=== PATIENT | male | born 1965 | race Caucasian/White ===

== ENCOUNTER 2018-06-23 14:41 | Outpatient (CLI) | payer BC ==
[2018-06-23 17:57] LABS: BASOPHILS % (AUTO) 0.7 %; EOSINOPHILS # (AUTO) 0.2 10^3/uL (0.0-0.7); EOSINOPHILS % (AUTO) 3.1 %; HGB - HEMOGLOBIN 14.2 g/dL (14.0-18.0); LYMPHOCYTES # (AUTO) 1.2 10^3/uL (1.5-3.5); LYMPHOCYTES % (AUTO) 22.5 %; MEAN CORPUSCULAR HGB CONC 33.2 g/dL (32.0-36.0); MEAN CORPUSCULAR VOLUME 90.5 fL (80.0-94.0); MONOCYTES # (AUTO) 0.4 10^3/uL (0.0-1.0); MONOCYTES % (AUTO) 7.4 %; NEUTROPHILS # (AUTO) 3.7 10^3/uL (1.5-6.6); NEUTROPHILS % (AUTO) 66.3 %; PLT - PLATELET COUNT 161 10^3/uL (130-450); RED BLOOD COUNT 4.74 10^6/uL (4.70-6.10); RED CELL DISTRIBUTION WIDTH 13.4 % (12.0-15.0); WHITE BLOOD COUNT 5.5 x10^3/uL (4.8-10.8)
[2018-06-23 18:10] LABS: ALBUMIN 4.2 g/dL (3.2-5.5); ALBUMIN/GLOBULIN RATIO 1.9 (1.0-2.2); ALKALINE PHOSPHATASE 54 IU/L (42-121); ALT ALANINE AMINOTRANSFERASE 17 IU/L (10-60); AST ASPARTATE AMINOTRANSFERASE 18 IU/L (10-42); BILIRUBIN,TOTAL 0.8 mg/dL (0.2-1.0); BUN - BLOOD UREA NITROGEN 24 mg/dL (6-20); CALCIUM 8.9 mg/dL (8.5-10.3); CARBON DIOXIDE - CO2 30 mmol/L (21-32); CHLORIDE 102 mmol/L (101-111); CHOL/HDL RATIO 2.5 (<5.0); CHOLESTEROL 147 mg/dL; CREATININE 0.9 mg/dL (0.6-1.2); GFR - MDRD 88 (>89); GLUCOSE 83 mg/dL (70-100); HDL CHOLESTEROL 59 mg/dL; SODIUM 140 mmol/L (135-145); TOTAL PROTEIN 6.4 g/dL (6.7-8.2)
[2018-06-23 18:11] LABS: HB2 TOTAL 15.5 g/dL; HEMOGLOBIN A1C 0.52 g/dL; HEMOGLOBIN A1C % 5.2 % (4.6-6.2)
[2018-06-23 18:58] LABS: LDL CHOLESTEROL,DIRECT 71 mg/dL; LDLD/HDL RATIO 1.2 (<3.6)
== END 2018-06-23 14:42 | disposition home or self-care (01) ==
LOC: LAB.F 14:41
PROVIDERS: ATTEND Internal Medicine
DX: Z00.00 Encounter for general adult medical examination without abnormal findings (principal)
CPT/HCPCS: 36415; 80053; 80061; 83036; 83721; 85025

== ENCOUNTER 2019-01-05 17:23 | Emergency (ER) | payer BC ==
[2019-01-05 17:38] VITALS: BP 142/82
[2019-01-05] MEDS ORDERED: TETANUS/DIPHTHERIA/PERTUSSIS 0.5 ML SYRINGE IM ONE (18:07)
[2019-01-05] MEDS ORDERED: BUFFERED LIDOCAINE 10 ML SYRINGE SUBQ STA (18:07)
--- NOTE | 2019-01-05 18:27 | ED Physician Documentation ---
PD HPI LOWER EXT INJURY - Stated complaint Stated Complaint: LFT LEG LAC - Chief complaint Chief Complaint: Laceration - History obtained from History obtained from: Patient - History of Present Illness PD HPI LOW EXT INJURY LOCATION: Left, Lower leg Type of injury: Laceration (skil saw) Where injury occurred: Work Timing - onset: Today (1629) Timing - details: Abrupt onset - Additional information Additional information: tetanus unknown Review of Systems Constitutional: reports: Reviewed and negative Throat: reports: Reviewed and negative Cardiac: reports: Reviewed and negative Respiratory: reports: Reviewed and negative PD PAST MEDICAL HISTORY - Past Medical History Cardiovascular: None, Arrhythmia Respiratory: None Endocrine/Autoimmune: None GI: None : None HEENT: Dental implants Psych: None Musculoskeletal: None Derm: None - Past Surgical History Ortho: Other Derm: Skin cancer surgery - Present Medications Home Medications: Ambulatory Orders Medication Instructions Recorded Confirmed Trabectedin [Yondelis] 1 mg IV 12/25/15 - Allergies Allergies/Adverse Reactions: Allergies Allergy/AdvReac Type Severity Reaction Status Date / Time No Known Drug Allergies Allergy Verified 12/25/15 08:45 PD ED PE NORMAL - Vitals Vital signs reviewed: Yes - General General: Alert and oriented X 3, No acute distress - Extremities Extremities: Other (6cm lac medial left thigh just into subq) - Neuro Neuro: Alert and oriented X 3, Normal speech Results - Vitals Vitals: Vital Signs - 24 hr 01/05/19 17:35 Temperature 36.4 C L Heart Rate 66 Respiratory 14 Rate Blood Pressure 142/82 H O2 Saturation 98 Oxygen O2 Source Room air Procedures - Laceration (location) LLE Length in cm: 6 Wound type: Linear, Into subcut fat Neurovascular status: Sensory intact, Motor intact, Vascular intact Anesthesia: Lidocaine 1%, With bicarb Wound Preparation: Irrigated copiously NS Skin layer closure: Ghanshyam Other: Tetanus booster given Complexity: Simple Departure - Departure Disposition: 01 Home, Self Care Clinical Impression: Laceration Condition: Good Record reviewed to determine appropriate education?: Yes Instructions: ED Laceration Ext Sutr Stap Tape Comments: Come back for any signs of infection which would include: Redness, swelling, drainage, increased pain, or fevers. Follow-up with your physician in 14 days for staple removal. Your blood pressure was elevated today on check into the emergency department. This does not mean that you have hypertension, it is a common phenomenon to come to the emergency department and have elevated blood pressure. I recommend that you see your primary care physician within the week to have it rechecked when y ou are feeling better.
== END 2019-01-05 18:30 | disposition home or self-care (01) ==
LOC: ED 17:23
DX: S81.812A Laceration without foreign body, left lower leg, initial encounter (principal); W29.8XXA Contact with other powered hand tools and household machinery, initial encounter; R03.0 Elevated blood-pressure reading, without diagnosis of hypertension
CPT/HCPCS: 12002; 90471

== ENCOUNTER 2021-10-02 14:45 | Outpatient (CLI) | payer BC, OTHER ==
--- NOTE | 2021-10-02 16:43 | XRAY Report ---
PROCEDURE: Knee 4 View LT INDICATIONS: LEFT KNEE PAIN TECHNIQUE: 4 views of the left knee(s) were acquired. COMPARISON: None. FINDINGS: Bones: No fractures or dislocations. No suspicious bony lesions. Severe left knee medial compartmen t osteoarthritis. Moderate left knee lateral and medial compartment osteoarthritis. Soft tissues: No joint effusion. No suspicious soft tissue calcifications. IMPRESSION: Left knee tricompartmental osteoarthritis as described above. Reviewed by: Theresa Wright MD, PhD on 10/02/2021 4:41 PM PDT Approved by: Theresa Wright MD, PhD on 10/02/2021 4:41 PM PDT Station ID: [id number]
== END 2021-10-02 18:00 | disposition home or self-care (01) ==
LOC: DI.WOS 14:45
PROVIDERS: ATTEND Physician Assistant
DX: M17.12 Unilateral primary osteoarthritis, left knee (principal)

== ENCOUNTER 2021-12-04 08:51 | Outpatient (CLI) | payer OTHER, BC ==
--- NOTE | 2021-12-04 17:45 | MRI Report ---
PROCEDURE: Femur/Thigh LT W/O INDICATIONS: INJURY OF LEFT QUADRICEPS TECHNIQUE: Noncontrast coronal and sagittal T1 spin echo and STIR; axial T1 spin echo and T2 fast spin echo with fat saturation through the left thigh. COMPARISON: None. FINDINGS: Image quality: Excellent. Bones: The visualized bone marrow demonstrates normal signal on all sequences. The overlying cortex appears intact. No fractures lines or intra-osseous lesions. Soft tissues: There is rupture of the distal rectus femoris tendon approximately 10 cm from its inse rtion on superior patella with up to 7.3 cm proximal retraction of torn tendon fibers to the level of mid femoral shaft and moderate to large amount of surrounding fluid. Rest of the quadriceps muscles and tendons are intact. The scanned muscles demonstrate normal overall bulk and internal signal. Sub cutaneous tissues appear normal as well. No soft tissue masses are present. IMPRESSION: 1. Full-thickness rupture involving distal rectus femoris tendon with proximal retraction of torn ten don fibers and moderate amount of surrounding fluid as described above. 2. No other muscle or tendon signal abnormality. 3. No marrow edema. No fracture or dislocation. No suspicious intraosseous lesion. Reviewed by: Bill Gibson MD on 12/04/2021 5:44 PM PDT Approved by: Bill Gibson MD on 12/04/2021 5:44 PM PDT Station ID: [id number]
== END 2021-12-04 08:52 | disposition home or self-care (01) ==
LOC: DI 08:51
PROVIDERS: ATTEND Physician Assistant
DX: S76.812A Strain of other specified muscles, fascia and tendons at thigh level, left thigh, initial encounter (principal)

== ENCOUNTER 2024-03-08 15:48 | Outpatient (CLI) | payer OTHER ==
[2024-03-08 16:27] LABS: BASOPHILS # (AUTO) 0.1 10^3/uL (0.0-0.1); BASOPHILS % (AUTO) 0.9 %; EOSINOPHILS # (AUTO) 0.2 10^3/uL (0.0-0.7); EOSINOPHILS % (AUTO) 3.8 %; HCT - HEMATOCRIT 43.2 % (42.0-52.0); HGB - HEMOGLOBIN 14.4 g/dL (14.0-18.0); LYMPHOCYTES # (AUTO) 1.4 10^3/uL (1.5-3.5); LYMPHOCYTES % (AUTO) 24.1 %; MEAN CORPUSCULAR HEMOGLOBIN 29.7 pg (27.0-31.0); MEAN CORPUSCULAR HGB CONC 33.3 g/dL (32.0-36.0); MEAN CORPUSCULAR VOLUME 89.1 fL (80.0-94.0); MEAN PLATELET VOLUME 10.9 fL (7.4-11.4); MONOCYTES # (AUTO) 0.6 10^3/uL (0.0-1.0); MONOCYTES % (AUTO) 9.5 %; NEUTROPHILS # (AUTO) 3.6 10^3/uL (1.5-6.6); NEUTROPHILS % (AUTO) 61.5 %; PLT - PLATELET COUNT 161 10^3/uL (130-450); RED BLOOD COUNT 4.85 10^6/uL (4.70-6.10); RED CELL DISTRIBUTION WIDTH 12.6 % (12.0-15.0); WHITE BLOOD COUNT 5.8 x10^3/uL (4.8-10.8)
[2024-03-08 17:04] LABS: ALBUMIN 4.1 g/dL (3.2-5.5); ALBUMIN/GLOBULIN RATIO 2.2 (1.0-2.2); ALKALINE PHOSPHATASE 62 IU/L (42-121); ALT ALANINE AMINOTRANSFERASE 15 IU/L (10-60); AST ASPARTATE AMINOTRANSFERASE 13 IU/L (10-42); BILIRUBIN,TOTAL 0.4 mg/dL (0.2-1.0); BUN - BLOOD UREA NITROGEN 27 mg/dL (6-20); CALCIUM 9.3 mg/dL (8.5-10.3); CARBON DIOXIDE - CO2 30 mmol/L (21-32); CHLORIDE 105 mmol/L (101-111); CHOL/HDL RATIO 2.5 (<5.0); CHOLESTEROL 147 mg/dL; CREATININE 1.1 mg/dL (0.6-1.3); CRP - C-REACTIVE PROTEIN < 0.5 mg/dL (<0.5); GFR - MDRD 68 (>89); GLUCOSE 92 mg/dL (74-104); HDL CHOLESTEROL 58 mg/dL; LDL CHOLESTEROL,CALCULATED 73 mg/dL; LDL/HDL RATIO 1.3 (<3.6); POTASSIUM 4.3 mmol/L (3.5-4.5); RHEUMATOID FACTOR NEGATIVE (Negative); SODIUM 139 mmol/L (135-145); TRIGLYCERIDES 79 mg/dL; URIC ACID 5.5 mg/dL (4.4-7.6); VLDL CHOLESTEROL 16 mg/dL
[2024-03-08 17:18] LABS: THYROID STIMULATING HORMONE 1.07 uIU/mL (0.34-5.60)
[2024-03-08 21:57] LABS: ESTIMATED AVERAGE GLUCOSE 105 mg/dL (70-100); HEMOGLOBIN A1c% 5.3 % (4.27-6.07)
== END 2024-03-08 15:49 | disposition home or self-care (01) ==
LOC: LAB 15:48
PROVIDERS: ATTEND Nurse Practitioner Gerontology
DX: Z00.00 Encounter for general adult medical examination without abnormal findings (principal); M25.50 Pain in unspecified joint
CPT/HCPCS: 36415; 80053; 80061; 83036; 83721; 84153; 84443; 84550; 85025; 85651; 86038; 86140; 86430